=== PATIENT | male | born 1945 | race Caucasian/White ===

== ENCOUNTER → 2023-07-27 | Outpatient (CLI) | payer MEDICARE, OTHER, SELFPAY ==
--- NOTE | 2023-07-27 14:56 | NEURO ---
NCS and/or EMG Patient Report Ordering Doctor: Jaylyn Kincaid DATE OF SERVICE: 07/27/23 Clinical Summary: This is a 77 year old male presenting with complaints of numbness in the left hand. This EMG/NCS was performed to evaluate for left carpal tunnel syndrome. Nerve Conduction Studies Summary: The left median-D2 SNAP distal latency was prolonged with reduced amplitude. The left ulnar-D5 SNAP distal latency was prolonged with reduced amplitude. The left radial SNAP distal latency was prolonged. The left median-APB CMAP distal latency was prolonged with reduced amplitude. The left median motor conduction velocity was reduced in the forearm segment. Needle Examination Summary: Needle examination demonstrated a higher proportion of motor unit action potentials with reduced recruitment, increased amplitude, increased duration, and polyphasia in the left flexor carpi ulnaris, first dorsal interosseous, and abductor pollicis brevis muscles. 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 Multi Select Codes Neurology Neurology Interp Codes: 11235-60 Musc test done w/n test comp (interp) (1) and 08582-43 Nrv cndj tst 5-6 studies (interp)
== END | disposition home or self-care (01) ==
LOC: PSN 14:02
PROVIDERS: PCP Family Medicine
DX: G56.12 Other lesions of median nerve, left upper limb (principal)
CPT/HCPCS: 95886; 95909